=== PATIENT | male | born 1985 | race American Indian/Alaskan Native ===

== ENCOUNTER 2017-04-02 14:50 | Emergency (ER) | payer OTHER ==
[2017-04-02 16:40] LABS: Hematocrit 39.5 % (35.5-45.6); Hemoglobin 13.2 gm/dl (11.8-15.2); Mean Corpuscular HGB Conc 33 % (32-34); Mean Corpuscular Hemoglobin 32 pg (28-32); Mean Corpuscular Volume 95 fl (84-94); Platelet Count 193 K/mm3 (140-440); Red Blood Count 4.17 M/mm3 (3.65-5.03); Red Cell Distribution Width 13.6 % (13.2-15.2)
[2017-04-02 16:58] LABS: BUN/Creatinine Ratio 10; Blood Urea Nitrogen 10 mg/dL (9-20); Calcium 8.4 mg/dL (8.4-10.2); Hemolysis Index 27
[2017-04-02 17:35] VITALS: BP 123/72
--- NOTE | 2017-04-02 17:37 | Emergency Department Report ---
HPI - General Chief Complaint: Seizure Time Seen by Provider: 04/02/17 17:26 - HPI HPI: Room 1 The patient is a 32-year-old male presented to chief complaint seizure. The patient was at work at 14:00 when he had a generalized tonic-clonic seizure. The patient states his last seizure before today was approximately 8 years ago. The patient states she's been compliant with the Lamictal and Depakote and there have been no recent dosage changes. The patient states for the past 2-3 days he's had a slight cough as been nonproductive. Patient denies any history of rhinorrhea or fever. The patient has taken NyQuil cold medication in addition to Mucinex for his cough Location: Central nervous system Duration: [See above] Quality: Seizure Severity: Moderate Modifying factors: [see above] Context: [see above] Mode of transportation: [not driving] ED Past Medical Hx - Past Medical History Hx Seizures: Yes - Surgical History Past Surgical History?: No - Family History Family history: no significant - Social History Smoking Status: Never Smoker Substance Use Type: None (denies illicit drug use) ED Review of Systems ROS: Stated complaint: SEIZURE Other details as noted in HPI Constitutional: denies: fever ENT: denies: other (denies rhinorrhea) Respiratory: cough Neurological: other (seizure) Physical Exam - Physical Exam Vital Signs: Vital Signs 04/02/17 04/02/17 04/02/17 15:56 16:00 16:05 Temperature 98.7 F Pulse Rate 96 H 92 H 94 H Respiratory 21 20 Rate Blood Pressure 117/76 125/76 O2 Sat by Pulse 100 98 Oximetry Physical Exam: GENERAL: The patient is well-developed well-nourished male lying on stretcher not appear to be in acute distress. [] HEENT: Normocephalic. Atraumatic. Extraocular motions are intact. Patient has moist mucous membranes. NECK: Supple. No meningitic signs are noted. Trachea midline CHEST/LUNGS: Clear to auscultation. There is no respiratory distress noted. HEART/CARDIOVASCULAR: Regular. There is no tachycardia. There is no gallop rub or murmur. ABDOMEN: Abdomen is soft, nontender. Patient has normal bowel sounds. There is no abdominal distention. SKIN: There is no rash. There is no edema. There is no diaphoresis. NEURO: The patient is awake, alert, and oriented. The patient is cooperative. The patient has no focal neurologic deficits. The patient has normal speech. Cranial nerves II through XII grossly intact, no drift MUSCULOSKELETAL: There is no evidence of acute injury. ED Course Vital Signs 04/02/17 04/02/17 04/02/17 15:56 16:00 16:05 Temperature 98.7 F Pulse Rate 96 H 92 H 94 H Respiratory 21 20 Rate Blood Pressure 117/76 125/76 O2 Sat by Pulse 100 98 Oximetry ED Medical Decision Making - Lab Data Result diagrams: 04/02/17 16:26 04/02/17 16:26 Laboratory Tests 04/02/17 04/02/17 04/02/17 16:26 16:26 16:26 WBC 3.3 L RBC 4.17 Hgb 13.2 Hct 39.5 MCV 95 H MCH 32 MCHC 33 RDW 13.6 Plt Count 193 Sodium 141 Potassium 4.1 Chloride 103.0 Carbon Dioxide 26 Anion Gap 16 BUN 10 Creatinine 1.0 Estimated GFR > 60 BUN/Creatinine Ratio 10 Glucose 86 Calcium 8.4 Valproic Acid 60.8 - Medical Decision Making I discussed potentially contact the patient's neurologist to make him aware of the patient's seizure. Family states they have already made an appointment to see the neurologist in 4 days - Differential Diagnosis seizure Critical care attestation.: If time is entered above; I have spent that time in minutes in the direct care of this critically ill patient, excluding procedure time. ED Disposition Clinical Impression: Seizure Disposition: [id number] TO HOME OR SELFCARE Is pt being admited?: No Does the pt Need Aspirin: No Condition: Stable Instructions: Epilepsy (ED) Additional Instructions: Return to the emergency department immediately should you develop worsening symptoms, fever, inability to tolerate food or liquid or any other concerns. Referrals: PRIMARY CARE, [Primary Care Provider] - 3-[address] Wong, your neurologist [Other] - 3-5 Days Time of Disposition: 17:40
== END 2017-04-02 18:08 | disposition home or self-care (01) ==
LOC: ED 14:50
DX: G40.909 Epilepsy, unspecified, not intractable, without status epilepticus (principal)
CPT/HCPCS: 36415; 80048; 80164; 85027